=== PATIENT | male | born 1970 | race Caucasian/White ===

== ENCOUNTER 2018-04-12 13:16 | Emergency (ER) | payer OTHER, BC ==
[2018-04-12] MEDS ORDERED: Sodium Chloride 0.9% 1,000 ML IV STA (13:53)
[2018-04-12] MEDS ORDERED: Iohexol 240 (50 ml) PO ONE (13:53)
--- NOTE | 2018-04-12 13:59 | ED PDOC ---
HPI: Male Pain Time Seen by Provider: 04/12/18 13:47 Chief Complaint (Nursing): Male Genitourinary Chief Complaint (Provider): Male Genitourinary History Per: Patient History/Exam Limitations: no limitations Onset/Duration Of Symptoms: Days (x3) Current Symptoms Are (Timing): Still Present Additional Complaint(s): 47 year old male with hx of inguinal hernia presents to the ED for evaluation of right testicular and inguinal pain for the past three days s/p lifting a heavy box. Denies nausea and vomiting, and he notes he is able to pass stool / urinate normally. PMD: none provided Past Medical History Reviewed: Historical Data, Nursing Documentation, Vital Signs Vital Signs: Last Vital Signs Temp 99.1 F 04/12/18 13:24 Pulse 86 04/12/18 13:24 Resp 22 04/12/18 13:24 BP 147/95 H 04/12/18 13:24 Pulse Ox 100 04/12/18 13:24 - Medical History Other PMH: Inguinal hernia - Family History Family History: States: Unknown Family Hx - Allergies Allergies/Adverse Reactions: Allergies Allergy/AdvReac Type Severity Reaction Status Date / Time No Known Allergies Allergy Verified 04/12/18 13:24 Review of Systems ROS Statement: Except As Marked, All Systems Reviewed And Found Negative Gastrointestinal: Negative for: Nausea, Vomiting Genitourinary Male: Positive for: Other (right testicular and inguinal pain) Physical Exam - Reviewed Nursing Documentation Reviewed: Yes Vital Signs Reviewed: Yes - Physical Exam Appears: Positive for: Uncomfortable (mildly) Head Exam: Positive for: ATRAUMATIC, NORMOCEPHALIC Skin: Positive for: Normal Color, Warm, Dry Eye Exam: Positive for: Normal appearance ENT: Positive for: Normal ENT Inspection Neck: Positive for: Normal, Painless ROM, Supple Cardiovascular/Chest: Positive for: Regular Rate, Rhythm Respiratory: Positive for: Normal Breath Sounds. Negative for: Respiratory Dis tress Gastrointestinal/Abdominal: Positive for: Normal Exam, Soft. Negative for: Tenderness Male Genital Exam: Positive for: inguinal tenderness (right inguinal swelling with indurated area to lateral aspect of right scrotum, non-reducible, tender to palpation) Back: Positive for: Normal Inspection Extremity: Positive for: Normal ROM Neurologic/Psych: Positive for: Alert, Oriented (x3). Negative for: Motor/Sensory Deficits - Laboratory Results Result Diagrams: 12/10/18 15:00 04/12/18 15:00 - ECG O2 Sat by Pulse Oximetry: 100 (RA) Pulse Ox Interpretation: Normal Medical Decision Making Medical Decision Making: Time: 1351 Initial Impression: right testicular and inguinal pain Initial Plan: --CT abd/pelvis IV contrast --CMP --CBC with differential --Morphine 2mg IM --IV fluids --Iohexol 50ml PO --Urinalysis --US Testes Scribe Attestation: Documented by Matilde Smalls acting as a scribe for Sean Ellington MD. Provider Scribe Attestation: All medical record entries made by the Scribe were at my direction and perso geri dictated by me. I have reviewed the chart and agree that the record accurately reflects my personal performance of the history, physical exam, medical decision making, and the department course for this patient. I have also personally directed, reviewed, and agree with the discharge instructions and disposition. Disposition - Clinical Impression Clinical Impression: Abdominal pain - Patient ED Disposition Is Patient to be Admitted: Transfer of Care - Disposition Disposition: Transfer of Care Disposition Time: 17:04 Condition: FAIR Forms: [employer] (Ecuadorean) Patient Signed Over To: Daly Ash
--- NOTE | 2018-04-12 15:07 | US ---
Date of service: 04/12/2018 HISTORY: Right testicular mass and pain TECHNIQUE: Realtime sonography through the scrotum with color and doppler flow. COMPARISON: None Available. FINDINGS: RIGHT TESTICLE: Measures 3.7 x 2.4 x 2.4 cm. Normal echotexture and flow. RIGHT EPIDIDYMIS: Epididymal head measures 0.9 x 0.9 x 1.1 cm. Grossly unremarkable appearance with normal flow. LEFT TESTICLE: Measures 4.1 x 2.9 x 2.5 cm. Normal echotexture and flow. LEFT EPIDIDYMIS: Epididymal head measures 1.0 x 0.9 x 0.7 cm. Grossly unremarkable appearance with normal flow. HYDROCELE: There is a small left hydrocele VARICOCELE: None. . OTHER FINDINGS: There are enlarged right inguinal lymph nodes, the largest measures 2.4 x 1.5 x 0.8 cm. IMPRESSION: 1. No evidence for testicular mass, torsion or epididymo-orchitis. 2. Enlarged right inguinal lymph nodes, nonspecific the differential considerations include reactive, infectious, inflammatory and neoplastic etiologies including lymphoma. Clinical follow-up is advised.
[2018-04-12 15:15] LABS: BASO # 0.1 K/uL (0.0-0.2); BASO % 0.9 % (0.0-2.0); EOS # 0.2 K/uL (0.0-0.7); EOS % 2.6 % (0.0-4.0); HEMOGLOBIN 14.2 g/dL (12.0-18.0); LYMPH # 1.9 K/uL (1.0-4.3); LYMPH % 28.8 % (20.0-40.0); MEAN CELL VOLUME 90.4 fl (80.0-94.0); MEAN CORPUSCULAR HEMOGLOBIN 29.1 pg (27.0-31.0); MEAN CORPUSCULAR HGB CONC 32.1 g/dL (33.0-37.0); MEAN PLATELET VOLUME 6.6 fl (7.2-11.7); MONO # 0.8 K/uL (0.0-0.8); MONO % 11.6 % (0.0-10.0); NEUT # 3.7 K/uL (1.8-7.0); NEUT % 56.1 % (50.0-75.0); NRBC % 0.1 % (0.0-0.0); RBC 4.87 Mil/uL (4.40-5.90); RED CELL DISTRIBUTION WIDTH 14.4 % (11.5-14.5); URINE BILIRUBIN NEGATIVE (NEGATIVE); URINE BLOOD NEGATIVE (NEGATIVE); URINE CLARITY SLIGHTY-CLOUDY (Clear); URINE COLOR YELLOW (YELLOW); URINE GLUCOSE (UA) NEG (NEGATIVE); URINE LEUKOCYTE ESTERASE NEG Leu/uL (Negative); URINE PROTEIN NEGATIVE (NEGATIVE); URINE UROBILINOGEN 0.2-1.0 mg/dL (0.2-1.0); WHITE BLOOD COUNT 6.6 K/uL (4.8-10.8)
[2018-04-12] MEDS ORDERED: Iohexol 240 (50 ml) ONE (15:22)
[2018-04-12 15:33] LABS: ALB/GLOB RATIO 1.1 (1.0-2.1); ALBUMIN 4.5 g/dL (3.5-5.0); ALT/SGPT 32 U/L (21-72); AST/SGOT 27 U/L (17-59); BLOOD UREA NITROGEN 12 mg/dl (9-20); CALCIUM 9.6 mg/dL (8.4-10.2); GFR NON-AFRICAN AMERICAN > 60
[2018-04-12] MEDS ORDERED: Sodium Chloride 0.9% 50 ML IV ONE (17:01)
[2018-04-12] MEDS ORDERED: Iohexol 300 100 ML IJ ONE (17:01)
[2018-04-12 17:05] VITALS: O2SAT 100
--- NOTE | 2018-04-12 18:00 | ED PDOC ---
- Laboratory Results Result Diagrams: 04/12/18 15:00 04/12/18 15:00 - ECG O2 Sat by Pulse Oximetry: 100 (RA) - Progress ED Course And Treament: 5p Rec'd endorsement from Dr Ellington. Pt pending CT. Accession No. : [id number] Patient Name / ID : VINCENT BRODERICK / [id number] Exam Date : 04/12/2018 17:46:32 ( Approved ) Study Comment : Sex / Age : M / 47Y Creator : Chu Velasco MD Dictator : Chu Velasco MD Lining Brusher : Fire Support Specialist : Chu Velasco MD Approver2 : Report Date : 04/12/2018 18:30:41 My Comment : Date of service: 04/12/2018 PROCEDURE: CT Abdomen and Pelvis. HISTORY: Abdominal pain COMPARISON: No prior study available for comparison TECHNIQUE: Contiguous axial images of the abdomen and pelvis performed following i ntravenous injection of approximately 95 cc Omnipaque 300 contrast material. Additional 2D sagittal and coronal reformats generated. The. Coronal and Sagittal reformats generated. Radiation dose: Total exam DLP = 310.45 mGy-cm. This CT exam was performed using one or more of the following dose reduction techniques: Automated exposure control, adjustment of the mA and/or kV according to patient size, and/or use of iterative reconstruction technique. FINDINGS: LOWER THORAX: Lung bases clear. No infiltrate effusion or basilar pneumothorax. Heart size within range of normal. No significant pericardial effusion. There is a tiny hiatal hernia. LIVER: Liver exhibits relatively normal size measuring just over 17 cm in CC dimension. Mild diffuse fatty hepatic infiltration. No obvious hepatic mass collection or calcification. Portal and splenic veins are opacified. No gross intrahepatic biliary ductal dilatation. GALLBLADDER AND BILE DUCTS: Unremarkable. PANCREAS: Pancreas is not well delineated due to adjacent loops of under opacified-poorly opacified bowel and a lack of intraperitoneal and retroperitoneal fat. No obvious pancreatic masses collections or calcifications. SPLEEN: Spleen exhibits normal size and attenuation pattern without mass collection or calcification. ADRENALS: There are no adrenal lesions.. KIDNEYS AND URETERS: Kidneys demonstrate relatively symmetric nephrograms. No evidence of nephrolithiasis or hydronephrosis.. BLADDER: Urinary bladder is incompletely distended which may in part account for thick- walled appearance. Muscular hypertrophy presumably contributes. Correlation with urinalysis recommended to exclude cystitis. REPRODUCTIVE: Prostate gland measures approximately 4.1 cm in transverse dimension. Findings likely due to BPH however correlation with PSA recommended. APPENDIX: Normal-appearing appendix best seen on axial series 3 image number [id number]. No periappendiceal inflammatory changes. BOWEL: Evaluation of the bowel is slightly limited due to incomplete opacification. The stomach is distended with small amount of air and diluted contrast material presumably due to additional food debris and liquid. Many of the proximal loops of small bowel are poorly opacified likely containing dilute contrast. No evidence of acute mechanical small bowel obstruction with oral contrast material extending into the colon to the level of the mid-did distal transverse colon region.. No definitive evidence of mural wall thickening. PERITONEUM: No gross free intraperitoneal air. No free or loculated fluid collections. LYMPH NODES: Unremarkable. No significant intraperitoneal or retroperitoneal adenopathy. Note made of few of prominent right inguinal lymph nodes with some vague infiltration changes in the adjacent subcutaneous fat nonspecific. Rule out mild cellulitis. VASCULATURE: Unremarkable. No aortic aneurysm. Minor aortic atherosclerotic calcification or mural plaque present. BONES: Minor multilevel degenerative spondylosis of the lower thoracic and lumbar spine. OTHER FINDINGS: None. IMPRESSION: Incomplete urinary bladder distention and muscular hypertrophy presumably account for slight urinary bladder wall thickening however correlation with urinalysis recommended to exclude cystitis. Prominent prostate gland likely due to BPH however correlation with PSA recommended. No evidence of acute appendicitis. No evidence of obstructing nephrolithiasis. Mild fatty hepatic infiltration. Few prominent right inguinal lymph nodes with some vague infiltration changes of the subcutaneous fat. Rule out possibility of a mild cellulitis. DW pt findings and plan of care. Rx as scrotal cellulitis. Antibiotics and urgent follow up. Also advised f/u for prostate enlargement. Disposition - Clinical Impression Clinical Impression: Cellulitis, scrotum, Groin strain - POA Present On Arrival: None - Disposition Referrals: Hilda Fink [Outside] Director [facility] [Outside] Disposition: Routine/Home Disposition Time: 19:13 Condition: STABLE Additional Instructions: FOLLOWUP WITH [facility] AND [facility] FOR A 48 HOUR REEVALUATION. Prescriptions: Amoxicillin/Clavulanate [Augmentin 875 MG-125 MG] 1 tab PO BID #14 tab RX: Ibuprofen [Motrin Tab] 600 mg PO Q8 PRN #60 tab PRN Reason: Pain, Moderate (4-7) Sulfamethoxazole/Trimethoprim [Bactrim DS 800 mg-160 mg] 1 tab PO BID #14 tab Instructions: Groin Strain, Cellulitis (Skin Infection), Adult (DC) Forms: Hilda Hurtado (Kazakh), [facility] ED School/Work Excuse
--- NOTE | 2018-04-12 18:34 | CT ---
Date of service: 04/12/2018 PROCEDURE: CT Abdomen and Pelvis. HISTORY: Abdominal pain COMPARISON: No prior study available for comparison TECHNIQUE: Contiguous axial images of the abdomen and pelvis performed following intravenous injection of approximately 95 cc Omnipaque 300 contrast material. Additional 2D sagittal and coronal reformats generated. The. Coronal and Sagittal reformats generated. Radiation dose: Total exam DLP = 310.45 mGy-cm. This CT exam was performed using one or more of the following dose reduction techniques: Automated exposure control, adjustment of the mA and/or kV according to patient size, and/or use of iterative reconstruction technique. FINDINGS: LOWER THORAX: Lung bases clear. No infiltrate effusion or basilar pneumothorax. Heart size within range of normal. No significant pericardial effusion. There is a tiny hiatal hernia. LIVER: Liver exhibits relatively normal size measuring just over 17 cm in CC dimension. Mild diffuse fatty hepatic infiltration. No obvious hepatic mass collection or calcification. Portal and splenic veins are opacified. No gross intrahepatic biliary ductal dilatation. GALLBLADDER AND BILE DUCTS: Unremarkable. PANCREAS: Pancreas is not well delineated due to adjacent loops of under opacified-poorly opacified bowel and a lack of intraperitoneal and retroperitoneal fat. No obvious pancreatic masses collections or calcifications. SPLEEN: Spleen exhibits normal size and attenuation pattern without mass collection or calcification. ADRENALS: There are no adrenal lesions.. KIDNEYS AND URETERS: Kidneys demonstrate relatively symmetric nephrograms. No evidence of nephrolithiasis or hydronephrosis.. BLADDER: Urinary bladder is incompletely distended which may in part account for thick-walled appearance. Muscular hypertrophy presumably contributes. Correlation with urinalysis recommended to exclude cystitis. REPRODUCTIVE: Prostate gland measures approximately 4.1 cm in transverse dimension. Findings likely due to BPH however correlation with PSA recommended. APPENDIX: Normal-appearing appendix best seen on axial series 3 image number [id number]. No periappendiceal inflammatory changes. BOWEL: Evaluation of the bowel is slightly limited due to incomplete opacification. The stomach is distended with small amount of air and diluted contrast material presumably due to additional food debris and liquid. Many of the proximal loops of small bowel are poorly opacified likely containing dilute contrast. No evidence of acute mechanical small bowel obstruction with oral contrast material extending into the colon to the level of the mid-did distal transverse colon region.. No definitive evidence of mural wall thickening. PERITONEUM: No gross free intraperitoneal air. No free or loculated fluid collections. LYMPH NODES: Unremarkable. No significant intraperitoneal or retroperitoneal adenopathy. Note made of few of prominent right inguinal lymph nodes with some vague infiltration changes in the adjacent subcutaneous fat nonspecific. Rule out mild cellulitis. VASCULATURE: Unremarkable. No aortic aneurysm. Minor aortic atherosclerotic calcification or mural plaque present. BONES: Minor multilevel degenerative spondylosis of the lower thoracic and lumbar spine. OTHER FINDINGS: None. IMPRESSION: Incomplete urinary bladder distention and muscular hypertrophy presumably account for slight urinary bladder wall thickening however correlation with urinalysis recommended to exclude cystitis. Prominent prostate gland likely due to BPH however correlation with PSA recommended. No evidence of acute appendicitis. No evidence of obstructing nephrolithiasis. Mild fatty hepatic infiltration. Few prominent right inguinal lymph nodes with some vague infiltration changes of the subcutaneous fat. Rule out possibility of a mild cellulitis.
[2018-04-12 19:31] VITALS: BP 130/88; PULSE 59; RESP 16; TEMP 98.6
== END 2018-04-12 19:32 | disposition home or self-care (01) ==
LOC: H.ER 13:16
DX: R10.30 Lower abdominal pain, unspecified (principal); S39.011A Strain of muscle, fascia and tendon of abdomen, initial encounter; N49.2 Inflammatory disorders of scrotum; N40.0 Benign prostatic hyperplasia without lower urinary tract symptoms
CPT/HCPCS: 74177; 80053; 81003; 85025; 93975; 96374; 99285; J1885; J7030; Q9966; Q9967